=== PATIENT | male | born 1925 | race Caucasian/White ===

== ENCOUNTER 2016-05-13 04:40 | Inpatient (IN) | payer MEDICARE, OTHER ==
[~2016-05-13] VITALS: Ht 152.4 cm; Wt 62.2 kg
[~2016-05-13 04:40] MED LIST: ACET325T21 PO; ASPI81TA44 PO; CALC-104 PO; CHOL200027 PO; DOXA4TAB2 PO; HYDR200T PO; OMEG1CAP29 PO; SULF500T5 PO; VITA400C36 PO
[2016-05-13] MEDS ORDERED: MECLIZINE HCL 12.5 MG TABLET. PO ONE (05:15)
[2016-05-13] MEDS ORDERED: IV NORMAL SALINE 500ML BAG 500 ML IV ONE (05:15)
--- NOTE | 2016-05-13 05:34 | PHYS DOC ---
Past Medical History Past Medical History: Arthritis, Hypertension, P.U.D., Other Additional Past Medical Histor: enlarged prostate Past Surgical History: Appendectomy, Cholecystectomy, Other Additional Past Surgical Histo: EGD with endoclip of duodenum ulcer Alcohol Use: None Drug Use: None Adult General Chief Complaint Chief Complaint: DIZZY/LIGHT HEADED HPI HPI Patient is a 89 year old male who presents with family for dizziness. Has 2 days of dizziness. Has some resting dizziness that gets worse with sitting to standing. This does fatigue within minutes and he is able to ambulate with assistance. He states he did have an episode of syncope with this yesterday. He has recent decreased oral intake without explanation. He denies chest pain, headache, vision changes, tinnitus, ear pain, numbness, tingling, weakness, neck pain or manipulation, abdominal pain, nausea or vomiting, diarrhea, dysuria , bloody or dark stools. Review of Systems Review of Systems Constitutional: Denies fever or chills [] Eyes: Denies change in visual acuity, redness, or eye pain [] HENT: Denies nasal congestion or sore throat [] Respiratory: Denies cough or shortness of breath [] Cardiovascular: No additional information not addressed in HPI [] GI: Denies abdominal pain, nausea, vomiting, bloody stools or diarrhea [] : Denies dysuria or hematuria [] Musculoskeletal: Denies back pain or joint pain [] Integument: Denies rash or skin lesions [] Neurologic: Denies headache, focal weakness or sensory changes [] Endocrine: Denies polyuria or polydipsia [] Current Medications Current Medications Current Medications Medications (Trade) Dose Ordered Sig/Torres Start Time Stop Time Status Last Admin Dose Admin Meclizine HCl 12.5 mg 12.5 mg 1X ONCE 05/13/16 05:15 05/13/16 05:16 DC 05/13/16 05:40 12.5 MG Sodium Chloride (Iv Sodium Chloride 0.9% 500ml Bag) 500 ml @ 500 mls/hr 1X ONCE 05/13/16 05:15 05/13/16 06:14 DC 05/13/16 05:40 500 MLS/HR Allergies Allergies Allergies Coded Allergies Type Severity Reaction Last Updated Verified Penicillins Allergy Intermediate 06/03/15 Yes shellfish derived Allergy Intermediate 06/03/15 Yes Physical Exam Physical Exam Constitutional: Well developed, well nourished, no acute distress, non-toxic appearance. [] HENT: Normocephalic, atraumatic, bilateral TMs normal with cerumen in canals, oropharynx moist, no oral exudates, nose normal. [] Eyes: PERRLA, EOMI, conjunctiva normal, no discharge. [] Neck: Normal range of motion, supple. [] Cardiovascular:Heart rate regular rhythm [] Lungs & Thorax: Bilateral breath sounds clear to auscultation [] Abdomen: Bowel sounds normal, soft, no tenderness. [] Skin: Warm, dry, no erythema, no rash. [] Back: No tenderness, no CVA tenderness. [] Extremities: ROM intact, no edema. [] Neurologic: Alert and oriented X 3, normal motor function, normal sensory function, no focal deficits noted, cranial nerves II-XII intact, no pronator drift, unsteady upon standing. [] Psychologic: Affect normal, judgement normal, mood normal. [] Current Patient Data Vital Signs Vital Signs Date Time Temp Pulse Resp B/P Pulse Ox O2 Delivery O2 Flow Rate FiO2 05/13/16 05:10 97.8 79 15 165/93 96 Room Air 97.8 Lab Values Laboratory Tests Test 05/13/16 05:00 05/13/16 05:04 White Blood Count 7.8x10^3/uL (4.0-11.0) Red Blood Count 4.58x10^6/uL (4.30-5.70) Hemoglobin 13.1g/dL (13.0-17.5) Hematocrit 40.4% (39.0-53.0) Mean Corpuscular Volume 88fL (79-100) Mean Corpuscular Hemoglobin 29pg (25-35) Mean Corpuscular Hemoglobin Concent 33g/dL (31-37) Red Cell Distribution Width 14.7% (11.5-14.5) H Platelet Count 181x10^3/uL (140-400) Neutrophils (%) (Auto) 71% (31-73) Lymphocytes (%) (Auto) 20% (24-48) L Monocytes (%) (Auto) 6% (0-9) Eosinophils (%) (Auto) 2% (0-3) Basophils (%) (Auto) 1% (0-3) Neutrophils # (Auto) 5.6x10^3uL (1.8-7.7) Lymphocytes # (Auto) 1.6x10^3/uL (1.0-4.8) Monocytes # (Auto) 0.5x10^3/uL (0.0-1.1) Eosinophils # (Auto) 0.2x10^3/uL (0.0-0.7) Basophils # (Auto) 0.0x10^3/uL (0.0-0.2) Sodium Level 143mmol/L (136-145) Potassium Level 3.6mmol/L (3.5-5.1) Chloride Level 106mmol/L (98-107) Carbon Dioxide Level 29mmol/L (21-32) Anion Gap 8 (6-14) Blood Urea Nitrogen 22mg/dL (8-26) Creatinine 1.0mg/dL (0.7-1.3) Estimated GFR (Cockcroft-Gault) 70.4 Glucose Level 114mg/dL (70-99) H Calcium Level 9.4mg/dL (8.5-10.1) Urine Collection Type Unknown Urine Color Yellow Urine Clarity Clear Urine pH 7.0 Urine Specific [place] <=1.005 Urine Protein Negativemg/dL (NEG-TRACE) Urine Glucose (UA) Negativemg/dL (NEG) Urine Ketones (Stick) Negativemg/dL (NEG) Urine Blood Negative (NEG) Urine Nitrite Negative (NEG) Urine Bilirubin Negative (NEG) Urine Urobilinogen Dipstick 0.2mg/dL (0.2 mg/dL) Urine Leukocyte Esterase Negative (NEG) Urine RBC Occ/HPF (0-2) Urine WBC 0/HPF (0-4) Urine Squamous Epithelial Cells Occ/LPF Urine Bacteria 0/HPF (0-FEW) Laboratory Tests 05/13/16 05:00 Laboratory Tests 05/13/16 05:00 EKG EKG EKG as interpreted by me with sinus rhythm with interventricular block, rate 79 , no ST-T changes, MD 324, QTc 453, no ectopy Radiology/Procedures Radiology/Procedures Head CT without contrast IMPRESSION: No acute intracranial hemorrhage. Regions of low attenuation of the white matter. Nonspecific but frequently secondary to chronic small vessel ischemic disease. Electronically signed by: Justo Dahl (May 13, 2016 05:56:02) Course & Med Decision Making Course & Med Decision Making Pertinent Labs and Imaging studies reviewed. (See chart for details) Workup is unremarkable. He is feeling better after medications, but is still not steady at his baseline. He and family do not feel comfortable going home as he lives independently. Discussed case with Dr. Friend, who will admit. Dragon Disclaimer Dragon Disclaimer This electronic medical record was generated, in whole or in part, using a voice recognition dictation system. Departure Departure Impression: Primary Impression: Dizziness and giddiness Disposition: ADMITTED INPATIENT Condition: STABLE Referrals: SHILO FRIEND MD (PCP) Damaso DHALIWAL MD May 13, 2016 05:34
[2016-05-13 05:40] LABS: BASO % 1 % (0-3); EOS % 2 % (0-3); HEMATOCRIT 40.4 % (39.0-53.0); HEMOGLOBIN 13.1 g/dL (13.0-17.5); LYMPH # 1.6 x10^3/uL (1.0-4.8); LYMPH % 20 % (24-48); MEAN CORPUSCULAR HEMOGLOBIN 29 pg (25-35); MEAN CORPUSCULAR HGB CONC 33 g/dL (31-37); MEAN CORPUSCULAR VOLUME 88 fL (79-100); MONO % 6 % (0-9); NEUT % 71 % (31-73); PLATELET COUNT 181 x10^3/uL (140-400); RED BLOOD COUNT 4.58 x10^6/uL (4.30-5.70); RED CELL DISTRIBUTION WIDTH 14.7 % (11.5-14.5); WHITE BLOOD COUNT 7.8 x10^3/uL (4.0-11.0)
[2016-05-13 05:55] LABS: CALCIUM 9.4 mg/dL (8.5-10.1); GFR 70.4; POTASSIUM 3.6 mmol/L (3.5-5.1)
--- NOTE | 2016-05-13 05:58 | RAD ---
INDICATION: Dizziness COMPARISON: None TECHNIQUE: Axial CT images obtained through the head. One or more of the following individualized dose reduction techniques were utilized for this examination: 1. Automated exposure control; 2. Adjustment of the mA and/or kV according to patient size; 3. Use of iterative reconstruction technique. FINDINGS: No midline shift. Ventricles and sulci are prominent. Basilar cistern patent. No gross hemorrhage or intracranial mass. No displaced skull fracture. Regions of low attenuation of the white matter. The right vertebral artery is prominent in size. IMPRESSION: No acute intracranial hemorrhage. Regions of low attenuation of the white matter. Nonspecific but frequently secondary to chronic small vessel ischemic disease. Electronically signed by: Jsuto Dahl (May 13, 2016 05:56:02)
[2016-05-13 06:00] LABS: BILIRUBIN,URINE NEGATIVE (NEG); GLUCOSE,URINE NEGATIVE (NEG); NITRITE,URINE NEGATIVE (NEG); PROTEIN,URINE NEGATIVE (NEG-TRACE); UROBILINOGEN,URINE 0.2 mg/dL (0.2 mg/dL)
[2016-05-13 06:07] LABS: BACTERIA,URINE 0 /HPF (0-FEW); RBC,URINE OCC /HPF (0-2); SQUAMOUS EPITHELIAL CELL,UR OCC /LPF; WBC,URINE 0 /HPF (0-4)
[2016-05-13] MEDS ORDERED: MECL12.52 PO (06:13)
[2016-05-13] MEDS ORDERED: MECLIZINE HCL 12.5 MG TABLET. PO PRN (06:30)
[2016-05-13 10:30] VITALS: BP 148/63
[2016-05-13 11:00] VITALS: BP 140/58
[2016-05-13] MEDS ORDERED: LORA10TA68 PO (12:15)
[2016-05-13] MEDS ORDERED: PANT40TA5 PO (12:15)
[2016-05-13] MEDS ORDERED: [UNRECOGNIZED DRUG - OTHER] PO (12:16)
--- NOTE | 2016-05-13 12:22 | EKG ---
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
[2016-05-13 12:26] VITALS: BP 148/63
[2016-05-13] MEDS ORDERED: PNEUMOCOCCAL VAX SCREEN BY RX. MC ONE (12:30)
[2016-05-13] MEDS ORDERED: INFLUENZA VAX SCREEN BY RX. MC ONE (12:30)
--- NOTE | 2016-05-13 13:36 | PDOC ---
PROGRESS NOTES Subjective Subjective Patient denies vertigo at this time. Objective Objective Vital Signs Date Time Temp Pulse Resp B/P Pulse Ox O2 Delivery O2 Flow Rate FiO2 05/13/16 12:26 99.5 62 20 148/63 93 Room Air 99.5 Physical Exam Abdomen: Normal bowel sounds, Soft, No tenderness Heart: Regular rate Extremities: No edema General: Alert, Oriented X3 (somewhat forgetful), No acute distress Lungs: Clear to auscultation Assessment Assessment Problems Medical Problems: (1) Dizziness and giddiness Status: Acute Plan Plan of Care 1. Vertigo - patient had some weakness and unsteady gait in ER and was admitted due to safety concerns. Lab unremarkable. Taking po without difficulty. Will try scheduled Meclizine. PT and OT to assess his mobility. 2. urinary retention - patient does have a long history of BPH. Apparently felt difficulty emptying his bladder at admission. Start Flomax. Continue Bonilla for decompression. UA without evidence of infection. 3. RA - patient has not been symptomatic with this for some time and takes no meds for it presently. Tylenol prn. Comment Review of Relevant I have reviewed the following items mandi (where applicable) has been applied. Labs Laboratory Tests Test 05/13/16 05:00 05/13/16 05:04 White Blood Count 7.8x10^3/uL (4.0-11.0) Red Blood Count 4.58x10^6/uL (4.30-5.70) Hemoglobin 13.1g/dL (13.0-17.5) Hematocrit 40.4% (39.0-53.0) Mean Corpuscular Volume 88fL (79-100) Mean Corpuscular Hemoglobin 29pg (25-35) Mean Corpuscular Hemoglobin Concent 33g/dL (31-37) Red Cell Distribution Width 14.7% (11.5-14.5) Platelet Count 181x10^3/uL (140-400) Neutrophils (%) (Auto) 71% (31-73) Lymphocytes (%) (Auto) 20% (24-48) Monocytes (%) (Auto) 6% (0-9) Eosinophils (%) (Auto) 2% (0-3) Basophils (%) (Auto) 1% (0-3) Neutrophils # (Auto) 5.6x10^3uL (1.8-7.7) Lymphocytes # (Auto) 1.6x10^3/uL (1.0-4.8) Monocytes # (Auto) 0.5x10^3/uL (0.0-1.1) Eosinophils # (Auto) 0.2x10^3/uL (0.0-0.7) Basophils # (Auto) 0.0x10^3/uL (0.0-0.2) Sodium Level 143mmol/L (136-145) Potassium Level 3.6mmol/L (3.5-5.1) Chloride Level 106mmol/L (98-107) Carbon Dioxide Level 29mmol/L (21-32) Anion Gap 8 (6-14) Blood Urea Nitrogen 22mg/dL (8-26) Creatinine 1.0mg/dL (0.7-1.3) Estimated GFR (Cockcroft-Gault) 70.4 Glucose Level 114mg/dL (70-99) Calcium Level 9.4mg/dL (8.5-10.1) Urine Collection Type Unknown Urine Color Yellow Urine Clarity Clear Urine pH 7.0 Urine Specific [place] <=1.005 Urine Protein Negativemg/dL (NEG-TRACE) Urine Glucose (UA) Negativemg/dL (NEG) Urine Ketones (Stick) Negativemg/dL (NEG) Urine Blood Negative (NEG) Urine Nitrite Negative (NEG) Urine Bilirubin Negative (NEG) Urine Urobilinogen Dipstick 0.2mg/dL (0.2 mg/dL) Urine Leukocyte Esterase Negative (NEG) Urine RBC Occ/HPF (0-2) Urine WBC 0/HPF (0-4) Urine Squamous Epithelial Cells Occ/LPF Urine Bacteria 0/HPF (0-FEW) Laboratory Tests Test 05/13/16 05:00 05/13/16 05:04 White Blood Count 7.8x10^3/uL (4.0-11.0) Red Blood Count 4.58x10^6/uL (4.30-5.70) Hemoglobin 13.1g/dL (13.0-17.5) Hematocrit 40.4% (39.0-53.0) Mean Corpuscular Volume 88fL (79-100) Mean Corpuscular Hemoglobin 29pg (25-35) Mean Corpuscular Hemoglobin Concent 33g/dL (31-37) Red Cell Distribution Width 14.7% (11.5-14.5) Platelet Count 181x10^3/uL (140-400) Neutrophils (%) (Auto) 71% (31-73) Lymphocytes (%) (Auto) 20% (24-48) Monocytes (%) (Auto) 6% (0-9) Eosinophils (%) (Auto) 2% (0-3) Basophils (%) (Auto) 1% (0-3) Neutrophils # (Auto) 5.6x10^3uL (1.8-7.7) Lymphocytes # (Auto) 1.6x10^3/uL (1.0-4.8) Monocytes # (Auto) 0.5x10^3/uL (0.0-1.1) Eosinophils # (Auto) 0.2x10^3/uL (0.0-0.7) Basophils # (Auto) 0.0x10^3/uL (0.0-0.2) Sodium Level 143mmol/L (136-145) Potassium Level 3.6mmol/L (3.5-5.1) Chloride Level 106mmol/L (98-107) Carbon Dioxide Level 29mmol/L (21-32) Anion Gap 8 (6-14) Blood Urea Nitrogen 22mg/dL (8-26) Creatinine 1.0mg/dL (0.7-1.3) Estimated GFR (Cockcroft-Gault) 70.4 Glucose Level 114mg/dL (70-99) Calcium Level 9.4mg/dL (8.5-10.1) Urine Collection Type Unknown Urine Color Yellow Urine Clarity Clear Urine pH 7.0 Urine Specific [place] <=1.005 Urine Protein Negativemg/dL (NEG-TRACE) Urine Glucose (UA) Negativemg/dL (NEG) Urine Ketones (Stick) Negativemg/dL (NEG) Urine Blood Negative (NEG) Urine Nitrite Negative (NEG) Urine Bilirubin Negative (NEG) Urine Urobilinogen Dipstick 0.2mg/dL (0.2 mg/dL) Urine Leukocyte Esterase Negative (NEG) Urine RBC Occ/HPF (0-2) Urine WBC 0/HPF (0-4) Urine Squamous Epithelial Cells Occ/LPF Urine Bacteria 0/HPF (0-FEW) Medications Current Medications Meclizine HCl 12.5 mg 12.5 mg 1X ONCE PO Last administered on 05/13/16t 05:40 ; Start 05/13/16 at 05:15; Stop 05/13/16 at 05:16; Status DC Sodium Chloride (Iv Sodium Chloride 0.9% 500ml Bag) 500 ml @ 500 mls/hr 1X ONCE IV Last administered on 05/13/16t 05:40; Start 05/13/16 at 05:15; Stop at 06:14; Status DC Meclizine HCl (Antivert) 12.5 mg PRN Q6HRS PRN PO dizziness; Start 05/13/16 at 06:30 Info (Do NOT chart on this placeholder) 0.5 each 1X ONCE MC ; Start 05/13/16 at 12:30; Stop 05/13/16 at 12:31; Status UNV Pneumococcal Polyvalent Vaccine (Do NOT chart on this placeholder) 0.5 each 1X ONCE MC ; Start 05/13/16 at 12:30; Stop 05/13/16 at 12:31; Status UNV Pneumococcal Polyvalent Vaccine (Pneumovax 23) 0.5 ml ONCE ONCE VAX IM ; Start 05/13/16 at 15:00; Stop 05/13/16 at 15:01 Influenza Virus Vaccine Quadrival (Fluarix Quad [id number] Syringe) 0.5 ml ONCE ONCE VAX IM ; Start 05/13/16 at 15:00; Stop 05/13/16 at 15:01 Active Scripts Active Reported [ultanol] 1 Cap PO DAILY Claritin (Loratadine) 10 Mg Tablet 1 Tab PO DAILY Pantoprazole Sodium 40 Mg Tablet.dr 1 Tab PO DAILY07 Vitamin D3 (Cholecalciferol (Vitamin D3)) 2,000 Unit Tablet 2,000 Unit PO DAILY Fish Oil 500 Mg Softgel ([place]-3/Dha/Epa/Fish Oil) 1 Each Capsule 1,000 Mg PO DAILY Acetaminophen 325 Mg Tablet 500 Mg PO HS Cardura (Doxazosin Mesylate) 4 Mg Tablet 1 Tab PO DAILY Vitals/I & O Vital Sign - Last 24 Hours 05/13/16 05/13/16 05/13/16 05/13/16 05:00 05:10 05:30 06:00 Temp 97.8 97.8 Pulse 78 79 78 66 Resp 15 B/P 165/93 165/93 184/80 Pulse Ox 98 96 98 98 O2 Delivery Room Air Room Air Room Air Room Air 05/13/16 05/13/16 05/13/16 05/13/16 10:30 11:00 11:36 12:26 Temp 99.5 97.9 99.5 99.5 97.9 99.5 Pulse 62 85 62 Resp 20 18 20 B/P 148/63 140/58 148/63 Pulse Ox 98 93 O2 Delivery Room Air Room Air Room Air SHILO WHITE MD May 13, 2016 13:36
[2016-05-13] MEDS ORDERED: ACETAMINOPHEN 500 MG TABLET PO PRN (13:45)
[2016-05-13] MEDS: MECLIZINE HCL 12.5 MG TABLET. PO SCH ×2 (14:35→21:07)
[2016-05-13 15:00] VITALS: BP 134/56
[2016-05-13] MEDS ORDERED: PNEUMOC CONJ VACC 23-VALENT 0.5 ML VIAL. VAX IM ONE (15:00)
[2016-05-13] MEDS ORDERED: FLU VACC QUAD 2016-17 (36MOS+)/PF 0.5 ML SYRINGE. VAX IM ONE (15:00)
--- NOTE | 2016-05-13 16:17 | HP ---
ADMIT DATE: 05/13/2016 CHIEF COMPLAINT: Vertigo and lightheadedness. HISTORY OF PRESENT ILLNESS: The patient is an 89-year-old male who was brought to the Emergency Room by his family with the above complaint. He reports a several day history of lightheadedness. He did feel that things were spinning. He felt somewhat weak and had some difficulty moving around at home. He reports one episode of what sounds like a very brief syncope where he got lightheaded when he stood up. He states that he fell back against the bed and did not hit the floor or have any injury. He apparently regained consciousness immediately and contacted his family. Initial evaluation in the Emergency Room included lab which was basically unremarkable. A CT of the head without contrast was without acute findings. The patient was given some IV fluids and meclizine, but continued to exhibit an unsteady gait and the family did not feel comfortable taking him home. He was therefore admitted for further treatment. PAST MEDICAL HISTORY: BPH, rheumatoid arthritis, allergic rhinitis, gastric ulcer with bleeding in 2016. PAST SURGICAL HISTORY: Appendectomy, cholecystectomy, inguinal hernia repair, and basal cell skin cancer removal from the nose. ALLERGIES: The patient is allergic to PENICILLIN AND SHELLFISH. HOME MEDICATIONS: Cardura 4 mg daily, calcium with vitamin D b.i.d., loratadine 10 mg daily, pantoprazole 40 mg daily. FAMILY HISTORY: Noncontributory. SOCIAL HISTORY: The patient is . He lives by himself with some help from his family. He does not smoke cigarettes or drink alcohol. REVIEW OF SYSTEMS: The patient denies fever or chills. He denies cough or shortness of breath. He denies chest pain or palpitations. He denies abdominal pain, nausea or vomiting. He denies dysuria. He reports some recent feeling of difficulty in emptying his bladder completely. He denies significant joint pain. He did not get a flu shot last fall. PHYSICAL EXAMINATION: GENERAL: The patient is alert and oriented, although mildly forgetful, resting comfortably in bed in no acute distress. HEENT: PERRL, EOMI, sclerae clear. Oropharynx: Mucous membranes moist. NECK: Supple, without lymphadenopathy. CHEST: Clear to auscultation. CARDIOVASCULAR: Regular rhythm without murmur. ABDOMEN: Soft, nontender, normoactive bowel sounds are present. EXTREMITIES: Without edema. ASSESSMENT AND PLAN: 1. Vertigo, suspect a viral cause for this. We will start the patient on scheduled meclizine and follow his response to this. He is not dehydrated and therefore further IV fluids are not indicated. He is able to take oral fluids without difficulty and will have physical and occupational therapy to assess his mobility. The patient lives alone and is intent upon returning there as soon as possible. 2. Urinary retention. The patient does have a long history of BPH and has been on Cardura for this. He presently has a Bonilla catheter. We will start him on Flomax and continue the Bonilla for about 24 hours and then have a voiding trial. Urinalysis is without evidence of infection. 3. Rheumatoid arthritis. The patient is not really very symptomatic with this. Tylenol p.r.n. is ordered. SHILO WHITE MD DR: HANNAH/charlotte JOB#: [id number] / [id number] JUSTO
[2016-05-13 19:00] VITALS: BP 131/64
[2016-05-13] MEDS: TAMSULOSIN 0.4 MG CAP.ER.24H. PO SCH (21:07)
[2016-05-13 23:00] VITALS: BP 162/69
[2016-05-14] VITALS (8 sets, daily range): BP systolic 106–152; BP diastolic 64–80
[2016-05-14] MEDS: MECLIZINE HCL 12.5 MG TABLET. PO SCH ×3 (05:58→20:35)
[2016-05-14] MEDS: PANTOPRAZOLE 40 MG TABLET. PO SCH (05:58)
--- NOTE | 2016-05-14 12:22 | PDOC ---
PROGRESS NOTES Subjective Subjective Patient reports feeling a little lightheaded when sitting up in bed today. Has not been out of bed today. Objective Objective Vital Signs Date Time Temp Pulse Resp B/P Pulse Ox O2 Delivery O2 Flow Rate FiO2 05/14/16 11:00 97.4 78 22 136/74 96 Room Air 97.4 Intake and Output 05/14/16 07:00 Intake Total 1310 ml Output Total 2850 ml Balance -1540 ml Intake Oral 1310 ml Output Urine Total 2850 ml # Bowel Movements 1 Physical Exam Abdomen: Normal bowel sounds, Soft, No tenderness Heart: Regular rate Extremities: No edema General: Alert, Oriented X3, No acute distress Lungs: Clear to auscultation Assessment Assessment Problems Medical Problems: (1) Dizziness and giddiness Status: Acute Plan Plan of Care 1. Vertigo and lightheadedness - out of bed today. Continue Meclizine scheduled. 2. BPH and urinary retention - started on Flomax yesterday. Will d/c Bonilla and do voiding trial, checking PVR and using straight cath if needed. 3. debility - await PT today. Comment Review of Relevant I have reviewed the following items mandi (where applicable) has been applied. Labs Laboratory Tests Test 05/13/16 05:00 05/13/16 05:04 White Blood Count 7.8x10^3/uL (4.0-11.0) Red Blood Count 4.58x10^6/uL (4.30-5.70) Hemoglobin 13.1g/dL (13.0-17.5) Hematocrit 40.4% (39.0-53.0) Mean Corpuscular Volume 88fL (79-100) Mean Corpuscular Hemoglobin 29pg (25-35) Mean Corpuscular Hemoglobin Concent 33g/dL (31-37) Red Cell Distribution Width 14.7% (11.5-14.5) Platelet Count 181x10^3/uL (140-400) Neutrophils (%) (Auto) 71% (31-73) Lymphocytes (%) (Auto) 20% (24-48) Monocytes (%) (Auto) 6% (0-9) Eosinophils (%) (Auto) 2% (0-3) Basophils (%) (Auto) 1% (0-3) Neutrophils # (Auto) 5.6x10^3uL (1.8-7.7) Lymphocytes # (Auto) 1.6x10^3/uL (1.0-4.8) Monocytes # (Auto) 0.5x10^3/uL (0.0-1.1) Eosinophils # (Auto) 0.2x10^3/uL (0.0-0.7) Basophils # (Auto) 0.0x10^3/uL (0.0-0.2) Sodium Level 143mmol/L (136-145) Potassium Level 3.6mmol/L (3.5-5.1) Chloride Level 106mmol/L (98-107) Carbon Dioxide Level 29mmol/L (21-32) Anion Gap 8 (6-14) Blood Urea Nitrogen 22mg/dL (8-26) Creatinine 1.0mg/dL (0.7-1.3) Estimated GFR (Cockcroft-Gault) 70.4 Glucose Level 114mg/dL (70-99) Calcium Level 9.4mg/dL (8.5-10.1) Urine Collection Type Unknown Urine Color Yellow Urine Clarity Clear Urine pH 7.0 Urine Specific [place] <=1.005 Urine Protein Negativemg/dL (NEG-TRACE) Urine Glucose (UA) Negativemg/dL (NEG) Urine Ketones (Stick) Negativemg/dL (NEG) Urine Blood Negative (NEG) Urine Nitrite Negative (NEG) Urine Bilirubin Negative (NEG) Urine Urobilinogen Dipstick 0.2mg/dL (0.2 mg/dL) Urine Leukocyte Esterase Negative (NEG) Urine RBC Occ/HPF (0-2) Urine WBC 0/HPF (0-4) Urine Squamous Epithelial Cells Occ/LPF Urine Bacteria 0/HPF (0-FEW) Medications Current Medications Meclizine HCl 12.5 mg 12.5 mg 1X ONCE PO Last administered on 05/13/16 05:40 ; Start 05/13/16 at 05:15; Stop 05/13/16 at 05:16; Status DC Sodium Chloride (Iv Sodium Chloride 0.9% 500ml Bag) 500 ml @ 500 mls/hr 1X ONCE IV Last administered on 05/13/16 05:40; Start 05/13/16 at 05:15; Stop at 06:14; Status DC Meclizine HCl (Antivert) 12.5 mg PRN Q6HRS PRN PO dizziness; Start 05/13/16 at 06:30; Stop 05/13/16 at 13:32; Status DC Info (Do NOT chart on this placeholder) 0.5 each 1X ONCE MC ; Start 05/13/16 at 12:30; Stop 05/13/16 at 12:31; Status UNV Pneumococcal Polyvalent Vaccine (Do NOT chart on this placeholder) 0.5 each 1X ONCE MC ; Start 05/13/16 at 12:30; Stop 05/13/16 at 12:31; Status UNV Pneumococcal Polyvalent Vaccine (Pneumovax 23) 0.5 ml ONCE ONCE VAX IM ; Start 05/13/16 at 15:00; Stop 05/13/16 at 17:10; Status DC Influenza Virus Vaccine Quadrival (Fluarix Quad [id number] Syringe) 0.5 ml ONCE ONCE VAX IM Last administered on 05/14/16 10:20; Start 05/13/16 at 15:00; Stop 05/13/16 at 17:10; Status DC Tamsulosin HCl (Flomax) 0.4 mg QHS PO Last administered on 05/13/16 21:07; Start 05/13/16 at 21:00 Meclizine HCl (Antivert) 25 mg Q8HRS PO Last administered on 05/14/16 05:58; Start 05/13/16 at 14:00 Acetaminophen (Tylenol) 1,000 mg PRN Q6HRS PRN PO PAIN; Start 05/13/16 at 13:45 Pantoprazole Sodium (Protonix) 40 mg DAILY07 PO Last administered on 05/14/16 05:58; Start 05/14/16 at 07:00 Active Scripts Active Reported [ultanol] 1 Cap PO DAILY Claritin (Loratadine) 10 Mg Tablet 1 Tab PO DAILY Pantoprazole Sodium 40 Mg Tablet.dr 1 Tab PO DAILY07 Vitamin D3 (Cholecalciferol (Vitamin D3)) 2,000 Unit Tablet 2,000 Unit PO DAILY Fish Oil 500 Mg Softgel ([place]-3/Dha/Epa/Fish Oil) 1 Each Capsule 1,000 Mg PO DAILY Acetaminophen 325 Mg Tablet 500 Mg PO HS Cardura (Doxazosin Mesylate) 4 Mg Tablet 1 Tab PO DAILY Vitals/I & O Vital Sign - Last 24 Hours 05/13/16 05/13/16 05/13/16 05/13/16 12:26 15:00 19:00 20:00 Temp 99.5 97.5 97.4 99.5 97.5 97.4 Pulse 62 93 50 Resp B/P 148/63 134/56 131/64 Pulse Ox 93 96 96 O2 Delivery Room Air Room Air Room Air Room Air 05/13/16 05/14/16 05/14/16 05/14/16 23:00 03:00 07:00 08:00 Temp 97.7 98.1 97.2 97.7 98.1 97.2 Pulse 53 60 78 Resp B/P 162/69 139/75 132/70 Pulse Ox 97 97 98 O2 Delivery Room Air Room Air Room Air Room Air 05/14/16 05/14/16 05/14/16 05/14/16 08:58 08:58 08:59 11:00 Temp 97.4 97.4 Pulse 77 76 78 Resp B/P 141/75 142/78 131/71 136/74 Pulse Ox 97 94 96 96 O2 Delivery Room Air Room Air Room Air Room Air Intake and Output 05/13/16 05/13/16 05/14/16 15:00 23:00 07:00 Intake Total 240 ml 890 ml 180 ml Output Total 800 ml 2050 ml Balance 240 ml 90 ml -1870 ml SHILO WHITE MD May 14, 2016 12:22
[2016-05-14] MEDS: TAMSULOSIN 0.4 MG CAP.ER.24H. PO SCH (20:35)
[2016-05-15 03:04] VITALS: BP 109/64
[2016-05-15] MEDS: MECLIZINE HCL 12.5 MG TABLET. PO SCH ×2 (05:52→13:08)
[2016-05-15] MEDS: PANTOPRAZOLE 40 MG TABLET. PO SCH (05:52)
[2016-05-15 07:00] VITALS: BP 141/84
--- NOTE | 2016-05-15 08:46 | PDOC ---
PROGRESS NOTES Subjective Subjective Patient without complaint. Feels dizziness has improved (walked to the bathroom several times yesterday). Denies difficulty urinating. Objective Objective Vital Signs Date Time Temp Pulse Resp B/P Pulse Ox O2 Delivery O2 Flow Rate FiO2 05/15/16 03:04 98.7 74 20 109/64 99 Room Air 98.7 Intake and Output 05/15/16 07:00 Intake Total 840 ml Output Total 1925 ml Balance -1085 ml Intake Oral 840 ml Output Urine Total 1925 ml Physical Exam Abdomen: Normal bowel sounds, Soft, No tenderness Heart: Regular rate Extremities: No edema General: Alert, Oriented X3, No acute distress Lungs: Clear to auscultation Assessment Assessment Problems Medical Problems: (1) Dizziness and giddiness Status: Acute Plan Plan of Care 1. Vertigo and lightheadedness - appears improved with scheduled Meclizine. Home today, patient is anxious to be discharged today. 2. BPH with urinary retention - denies difficulty urinating since Bonilla removed yesterday. PVR checked once yesterday per chart and was 0. Home on Flomax. 3. debility - no PT yesterday. Patient advised to wait until seen by PT today, has a walker at home and would probably be safer using it while he is feeling lightheaded. Comment Review of Relevant I have reviewed the following items mandi (where applicable) has been applied. Medications Current Medications Meclizine HCl 12.5 mg 12.5 mg 1X ONCE PO Last administered on 05/13/16 05:40 ; Start 05/13/16 at 05:15; Stop 05/13/16 at 05:16; Status DC Sodium Chloride (Iv Sodium Chloride 0.9% 500ml Bag) 500 ml @ 500 mls/hr 1X ONCE IV Last administered on 05/13/16 05:40; Start 05/13/16 at 05:15; Stop at 06:14; Status DC Meclizine HCl (Antivert) 12.5 mg PRN Q6HRS PRN PO dizziness; Start 05/13/16 at 06:30; Stop 05/13/16 at 13:32; Status DC Info (Do NOT chart on this placeholder) 0.5 each 1X ONCE MC ; Start 05/13/16 at 12:30; Stop 05/13/16 at 12:31; Status UNV Pneumococcal Polyvalent Vaccine (Do NOT chart on this placeholder) 0.5 each 1X ONCE MC ; Start 05/13/16 at 12:30; Stop 05/13/16 at 12:31; Status UNV Pneumococcal Polyvalent Vaccine (Pneumovax 23) 0.5 ml ONCE ONCE VAX IM ; Start 05/13/16 at 15:00; Stop 05/13/16 at 17:10; Status DC Influenza Virus Vaccine Quadrival (Fluarix Quad [id number] Syringe) 0.5 ml ONCE ONCE VAX IM Last administered on 05/14/16 10:20; Start 05/13/16 at 15:00; Stop 05/13/16 at 17:10; Status DC Tamsulosin HCl (Flomax) 0.4 mg QHS PO Last administered on 05/14/16 20:35; Start 05/13/16 at 21:00 Meclizine HCl (Antivert) 25 mg Q8HRS PO Last administered on 05/15/16 05:52; Start 05/13/16 at 14:00 Acetaminophen (Tylenol) 1,000 mg PRN Q6HRS PRN PO PAIN; Start 05/13/16 at 13:45 Pantoprazole Sodium (Protonix) 40 mg DAILY07 PO Last administered on 05/15/16 05:52; Start 05/14/16 at 07:00 Active Scripts Active Reported [ultanol] 1 Cap PO DAILY Claritin (Loratadine) 10 Mg Tablet 1 Tab PO DAILY Pantoprazole Sodium 40 Mg Tablet.dr 1 Tab PO DAILY07 Vitamin D3 (Cholecalciferol (Vitamin D3)) 2,000 Unit Tablet 2,000 Unit PO DAILY Fish Oil 500 Mg Softgel ([place]-3/Dha/Epa/Fish Oil) 1 Each Capsule 1,000 Mg PO DAILY Acetaminophen 325 Mg Tablet 500 Mg PO HS Cardura (Doxazosin Mesylate) 4 Mg Tablet 1 Tab PO DAILY Vitals/I & O Vital Sign - Last 24 Hours 05/14/16 05/14/16 05/14/16 05/14/16 08:58 08:58 08:59 11:00 Temp 97.4 97.4 Pulse 77 76 78 Resp 20 20 22 B/P 141/75 142/78 131/71 136/74 Pulse Ox 97 94 96 96 O2 Delivery Room Air Room Air Room Air Room Air 05/14/16 05/14/16 05/14/16 05/14/16 15:00 19:00 20:00 23:00 Temp 97.8 97.4 97.6 97.8 97.4 97.6 Pulse 82 51 58 Resp 20 20 20 B/P 124/80 106/64 152/72 Pulse Ox 97 95 97 O2 Delivery Room Air Room Air Room Air Room Air 05/15/16 03:04 Temp 98.7 98.7 Pulse 74 Resp 20 B/P 109/64 Pulse Ox 99 O2 Delivery Room Air Intake and Output 05/14/16 05/14/16 05/15/16 15:00 23:00 07:00 Intake Total 720 ml 120 ml Output Total 1475 ml 450 ml Balance -755 ml -330 ml SHILO WHITE MD May 15, 2016 08:46
[2016-05-15] MEDS ORDERED: TAMS0.4C97 PO (08:48)
[2016-05-15] MEDS ORDERED: MECL12.52 PO (08:48)
[2016-05-15 11:00] VITALS: BP 118/60
--- NOTE | 2016-05-15 18:03 | DS ---
DATE OF DISCHARGE: 05/13/2016 CHIEF COMPLAINT: Vertigo and lightheadedness. HISTORY OF PRESENT ILLNESS: The patient is an 89-year-old male who was brought to the Emergency Room by his family with the above complaint. He reported a several day history of lightheadedness. He felt that things were spinning. He felt somewhat weak and had some difficulty moving around at home. Initial evaluation in the Emergency Room included lab, which was basically unremarkable. A CT of the head without contrast was without acute findings. The patient was given some IV fluids and meclizine, but continued to exhibit an unsteady gait and the family did not feel comfortable taking him home. He was therefore admitted for further treatment. HOSPITAL COURSE: The patient was started on scheduled meclizine and had good improvement in his symptoms with this. He was not dehydrated on admission and so further IV fluids were not indicated. He was taking a regular diet with a good appetite and drinking fluids well. The patient feels that his lightheadedness has improved enough and he is anxious to return home today. He is advised to wait until he is seen by physical therapy again today. It is possible that he should be using a walker for improved safety and he is encouraged to follow PT recommendations on this. He states he has a walker at home already, but does not usually use it. The patient has a long history of BPH and has been on Cardura for many years. He did exhibit some urinary retention early in his hospital stay and had a Bonilla catheter placed. The patient was started on Flomax and the catheter was removed after 24 hours. The patient denies any further difficulties urinating. A post-avoid residual was checked once yesterday per his chart and was zero. He is advised to continue the Flomax for this. The Cardura has been discontinued. The patient has rheumatoid arthritis, but is not really symptomatic with it and just takes Tylenol as needed. FINAL DIAGNOSES: 1. Vertigo, probably due to a viral infection. 2. Benign prostatic hypertrophy. 3. Urinary retention, resolved. 4. History of rheumatoid arthritis. DISCHARGE MEDICATIONS: Meclizine 25 mg every 8 hours as needed, Flomax 0.4 mg at bedtime, Tylenol p.r.n., Claritin 10 mg daily, pantoprazole 40 mg daily, Cardura has been discontinued. FOLLOWUP: With Dr. Friend in 2 weeks. SHILO FRIEND MD DR: Jill JOB#: [id number] / [id number] JUSTO
== END 2016-05-15 11:30 | disposition home or self-care (01) | DRG 866 ==
LOC: ER 04:40 → 5 NORTH 06:20 → ER 07:02
PROVIDERS: ADMIT Family Medicine; ATTEND Family Medicine
DX: B34.9 Viral infection, unspecified (principal); I10 Essential (primary) hypertension; M06.9 Rheumatoid arthritis, unspecified; N40.1 Benign prostatic hyperplasia with lower urinary tract symptoms; R55 Syncope and collapse; M19.90 Unspecified osteoarthritis, unspecified site; R33.8 Other retention of urine; Z85.828 Personal history of other malignant neoplasm of skin; Z87.11 Personal history of peptic ulcer disease; Z90.49 Acquired absence of other specified parts of digestive tract; Z88.0 Allergy status to penicillin; Z91.013 Allergy to seafood
CPT/HCPCS: 36415; 51702; 70450; 80048; 81001; 85027; 90686; 93005; J7040; J8597; 97110; 97116; 97530; 97535; 99285-25